=== PATIENT | female | born 1975 | race Two or more races ===

== ENCOUNTER 2017-08-27 15:16 | Emergency (ER) | payer SELFPAY ==
[~2017-08-27] VITALS: Ht 157.5 cm; Wt 68.0 kg
[~2017-08-27 15:16] MED LIST: COLACE100 MG ORAL; IBUPROFEN600 MG ORAL; NKM; NORCO 5-325 TA1 EACH ORAL; OFLOXACIN10 ML OP; TRAMADOL HCL50 MG ORAL
[2017-08-27 15:27] VITALS: BP 126/84
[2017-08-27] MEDS ORDERED: Mylanta II UD 30ml ORAL ONE ×2 (16:15→16:30)
[2017-08-27] MEDS ORDERED: Ketorolac 30mg Inj IV ONE (16:15)
--- NOTE | 2017-08-27 16:44 | Emergency Room Report ---
History of Present Illness General Chief Complaint: Abdominal Pain Source: Patient Present Illness HPI 41-year-old female presents to the emergency department complaining of 8/10 in severity midline epigastric pain-That is localized and waxes and wanes. x 8 days. denies Fevers, chills, vomiting, abdominal tenderness, constipation or diarrhea. Patient does report some nausea. She states pain is worse after eating. Denies , recent travel or ill contacts . Denies CP, Palpitations, LOC, AMS, dizziness, Changes in Vision, Sensation, paresthesias, or a sudden severe headache. Allergies: Coded Allergies: No Known Allergies (Unverified , 03/24/15) Patient History Past Medical History: see triage record Past Surgical History: none Pertinent Family History: none Now: No Reviewed Nursing Documentation: PMH: Agreed, PSxH: Agreed Nursing Documentation-PMH Past Medical History: No Stated History Review of Systems All Other Systems: negative except mentioned in HPI Physical Exam Vital Signs Date Time Temp Pulse Resp B/P (MAP) Pulse Ox O2 Delivery O2 Flow Rate FiO2 08/27/17 15:27 98.4 67 20 126/84 98 Room Air Sp02 EP Interpretation: reviewed, normal General Appearance: no apparent distress, alert, GCS 15, non-toxic Head: normocephalic, atraumatic Eyes: bilateral eye normal inspection, bilateral eye PERRL ENT: hearing grossly normal, normal voice Neck: full range of motion Respiratory: chest non-tender, lungs clear, normal breath sounds, speaking full sentences Cardiovascular #1: regular rate, rhythm, no edema Gastrointestinal: normal bowel sounds, non tender, soft, tenderness - mild epigastric tenderness Rectal: deferred Genitourinary: normal inspection Musculoskeletal: back normal, gait/station normal, normal range of motion, non- tender Neurologic: alert, oriented x3, responsive, motor strength/tone normal, sensory intact, speech normal, grossly normal Psychiatric: judgement/insight normal Skin: normal color, no rash, warm/dry, well hydrated Lymphatic: no adenopathy Medical Decision Making PA Attestation Dr. daigle is my supervising Physician whom patient management has been discussed with. Diagnostic Impression: Primary Impression: Abdominal pain Qualified Codes: R10.13 - Epigastric pain ER Course 41-year-old female presents to the emergency department complaining of 8/10 in severity midline epigastric pain-That is localized and waxes and wanes. x 8 days. denies Fevers, chills, vomiting, abdominal tenderness, constipation or diarrhea. Patient does report some nausea. She states pain is worse after eating. Denies , recent travel or ill contacts . Denies CP, Palpitations, LOC, AMS, dizziness, Changes in Vision, Sensation, paresthesias, or a sudden severe headache. Ddx considered but are not limited to Gastritis, GE, colitis, acute appy, SBO, * Vital signs: pt. is afebrile, H&PE are most consistent with Gastritis, no evidence to suggest acute abdomen on physical exam most consistent with gastritis. ORDERS: -None required at this time, the dx is clinical. ED INTERVENTIONS: -Mylanta -Lidocaine PO -Pepcid PO -I do not identify an emergent condition at this time. With current presentation , pt. is stable for close outpatient follow up and conservative treatment. D/ w pt. to return promptly to ED with worsening or new symptoms.- Pt. (and or responsible democrat) verbalizes' understanding and agreement with proposed treatment plan.proposed treatment plan. DISCHARGE: At this time pt. is stable for d/c to home. Will provide printed patient care instructions, and any necessary prescriptions. Care plan and follow up instructions have been discussed with the patient prior to discharge. Last Vital Signs Date Time Temp Pulse Resp B/P (MAP) Pulse Ox O2 Delivery O2 Flow Rate FiO2 08/27/17 15:27 98.4 67 20 126/84 98 Room Air Disposition: HOME, SELF-CARE Condition: Stable Scripts Mag Hydrox/Al Hydrox/Simeth (ALUM-MAG HYDROXIDE-SIMETH LIQ) 360 Ml Oral.susp 20 ML PO TID, #360 ML Prov: Jossy Driscoll P.A. 08/27/17 Ranitidine Hcl* (ZANTAC*) 150 Mg Tablet 150 MG ORAL TWICE A DAY, #20 TAB Prov: Jossy Driscoll.[place] 08/27/17 Patient Instructions: Abdominal Pain, Adult, Gastritis, Adult Additional Instructions: Take medications as directed. Follow up with a Primary Care Provider in 3-5 days, even if your symptoms have resolved. --Please review list of primary care clinics, if you do not already have a primary care provider Return sooner to ED if new symptoms occur, or current symptoms become worse. - Please note that this Emergency Department Report was dictated using [employer] machine operator technology software, occasionally this can lead to erroneous entry secondary to interpretation by the dictation equipment. Jossy Driscoll Aug 27, 2017 16:44
[2017-08-27] MEDS ORDERED: ZANTAC150 MG ORAL (16:45)
[2017-08-27] MEDS ORDERED: ALUM-MAG HYDRO360 ML PO (16:45)
[2017-08-27 16:59] VITALS: BP 126/84
== END 2017-08-27 17:01 | disposition home or self-care (01) ==
LOC: EMR 16:45
DX: R10.13 Epigastric pain (principal)
CPT/HCPCS: 99283; J1885

== ENCOUNTER 2020-08-26 18:19 | Emergency (ER) | payer OTHER, MEDICAID ==
[~2020-08-26] VITALS: Ht 170.2 cm; Wt 83.9 kg
[~2020-08-26 18:19] MED LIST changes: +ALUM-MAG HYDRO360 ML PO; +ZANTAC150 MG ORAL
[2020-08-26 18:29] VITALS: BP 140/74
--- NOTE | 2020-08-26 19:16 | Emergency Room Report ---
History of Present Illness General Chief Complaint: Pain Source: Patient Present Illness HPI Patient is a 44-year-old female who presents for increased headache, cough and intermittent breast pain. Onset of symptoms over the past few weeks. Denies any fever. Reports having some nonproductive cough. Had reported negative coronavirus testing in the past. Denies any history of diabetes. Reports having some suprapubic pain. Reports regular menses a few days ago. Allergies: Coded Allergies: No Known Allergies (Unverified , 03/24/15) COVID-19 Screening Contact w/high risk pt: No Experienced COVID-19 symptoms?: No COVID-19 Testing performed SOUR BLEACHING PLEATER: No Patient History Past Medical History: see triage record Reviewed Nursing Documentation: PMH: Agreed; PSxH: Agreed Nursing Documentation-PMH Past Medical History: No Stated History Review of Systems All Other Systems: negative except mentioned in HPI Physical Exam Vital Signs Date Time Temp Pulse Resp B/P (MAP) Pulse Ox O2 Delivery O2 Flow Rate FiO2 08/26/20 18:24 98.8 75 18 140/74 (96) 100 Room Air Sp02 EP Interpretation: reviewed, normal General Appearance: normal inspection, well appearing, no apparent distress, alert, GCS 15 Head: atraumatic ENT: normal ENT inspection, hearing grossly normal, normal voice Neck: normal inspection, full range of motion, supple, no bony tend Respiratory: normal inspection, lungs clear, normal breath sounds, no respiratory distress, no retraction, no wheezing Cardiovascular #1: regular rate, rhythm, no edema Gastrointestinal: normal inspection, normal bowel sounds, non tender, soft, no guarding, no hernia Genitourinary: no CVA tenderness Musculoskeletal: normal inspection, back normal, normal range of motion Neurologic: alert, motor strength/tone normal, auctioneer art III-XII nml as tested, oriented x3, responsive, speech normal, normal inspection Psychiatric: normal inspection, judgement/insight normal, mood/affect normal Medical Decision Making Diagnostic Impression: Primary Impression: Arthralgia ER Course Patient presented for generalized body aches. Differential diagnosis include was not limited to urinary tract infection, coronavirus infection, pneumonia among others. Because of complexity of patient's case laboratory tests and imaging studies were ordered. Patient appears to have some residual symptoms left from previous coronavirus infection. She does not appear to have any evidence of respiratory distress at this time. Patient was given prescription for medications for symptomatic management. She advised to return if worse. This medical record is generated with [employer] architectural draftsman software. There may be some architectural draftsman discrepancies related to use of this software Labs Test 08/26/20 18:55 White Blood Count 9.6 K/UL (4.8-10.8) Red Blood Count 3.83 M/UL (4.20-5.40) Hemoglobin 12.2 G/DL (12.0-16.0) Hematocrit 36.4 % (37.0-47.0) Mean Corpuscular Volume 95 FL (80-99) Mean Corpuscular Hemoglobin 31.7 PG (27.0-31.0) Mean Corpuscular Hemoglobin Concent 33.4 G/DL (32.0-36.0) Red Cell Distribution Width 13.2 % (11.6-14.8) Platelet Count 276 K/UL (150-450) Mean Platelet Volume 7.0 FL (6.5-10.1) Neutrophils (%) (Auto) 53.8 % (45.0-75.0) Lymphocytes (%) (Auto) 33.5 % (20.0-45.0) Monocytes (%) (Auto) 8.4 % (1.0-10.0) Eosinophils (%) (Auto) 2.3 % (0.0-3.0) Basophils (%) (Auto) 2.1 % (0.0-2.0) Urine Color Pale yellow Urine Appearance Slightly cloudy Urine pH 7 (4.5-8.0) Urine Specific [place] 1.005 (1.005-1.035) Urine Protein Negative (NEGATIVE) Urine Glucose (UA) Negative (NEGATIVE) Urine Ketones Negative (NEGATIVE) Urine Blood 5+ (NEGATIVE) Urine Nitrite Negative (NEGATIVE) Urine Bilirubin Negative (NEGATIVE) Urine Urobilinogen Normal MG/DL (0.0-1.0) Urine Leukocyte Esterase 1+ (NEGATIVE) Urine RBC Tntc /HPF (0 - 2) Urine WBC 0-2 /HPF (0 - 2) Urine Squamous Epithelial Cells Few /LPF (NONE/OCC) Urine Bacteria Occasional /HPF (NONE) Urine HCG, Qualitative Negative (NEGATIVE) Last Vital Signs Date Time Temp Pulse Resp B/P (MAP) Pulse Ox O2 Delivery O2 Flow Rate FiO2 08/26/20 18:29 98.8 75 18 140/74 100 Room Air Status: improved Disposition: HOME, SELF-CARE Condition: Stable Scripts Cephalexin* (KEFLEX*) 500 Mg Capsule 500 MG ORAL EVERY 6 HOURS, #28 CAP Prov: Surendra Barbour MD 08/26/20 Guaifenesin/Dextromethorphan* (Guaifenesin Dm Syrup*) 5 Ml Syrup 5 ML ORAL Q8H PRN for FOR COUGH, #118 ML 0 Refills Prov: Surendra Barbour MD 08/26/20 Hydrocortisone Ac/Lidocaine (LIDOCAINE-HC 3-0.5% CREAM KIT) 1 Each Kit 1 EACH RC DAILY, #1 KIT Prov: Surendra Barbour MD 08/26/20 Docusate Sodium* (COLACE*) 100 Mg Capsule 100 MG ORAL TWICE A DAY, #30 CAP Prov: Surendra Barbour MD 08/26/20 Referrals: NOT CHOSEN IPA/,REFERRING (PCP) Surendra Barbour MD Aug 26, 2020 19:16
[2020-08-26 19:21] LABS: BASOPHILS % (AUTO) 2.1 % (0.0-2.0); EOSINOPHILS % (AUTO) 2.3 % (0.0-3.0); HEMATOCRIT 36.4 % (37.0-47.0); HEMOGLOBIN 12.2 G/DL (12.0-16.0); LYMPHOCYTES % (AUTO) 33.5 % (20.0-45.0); MEAN CORPUSCULAR VOLUME 95 FL (80-99); MONOCYTES % (AUTO) 8.4 % (1.0-10.0); NEUTROPHILS % (AUTO) 53.8 % (45.0-75.0); PLATELET COUNT 276 K/UL (150-450); RED BLOOD COUNT 3.83 M/UL (4.20-5.40); RED CELL DISTRIBUTION WIDTH 13.2 % (11.6-14.8); WHITE BLOOD COUNT 9.6 K/UL (4.8-10.8)
[2020-08-26 19:25] LABS: APPEARANCE,URINE SLIGHTLY CLOUDY; BILIRUBIN, URINE NEGATIVE (NEGATIVE); COLOR,URINE PALE YELLOW; GLUCOSE, URINE (UA) NEGATIVE (NEGATIVE); KETONES,URINE NEGATIVE (NEGATIVE); LEUKOCYTE ESTERASE ,URINE 1+ (NEGATIVE); NITRITE,URINE NEGATIVE (NEGATIVE); PH,URINE 7 (4.5-8.0); PROTEIN,URINE NEGATIVE (NEGATIVE); UROBILINOGEN,URINE NORMAL MG/DL (0.0-1.0)
[2020-08-26 19:32] LABS: ANION GAP 6 mmol/L (5-15); BLOOD UREA NITROGEN 12 mg/dL (7-18); CARBON DIOXIDE 31 MMOL/L (21-32); CHLORIDE 106 MMOL/L (98-107); CREATININE 0.7 MG/DL (0.55-1.30); POTASSIUM 3.7 MMOL/L (3.5-5.1); SODIUM 142 MMOL/L (136-145)
[2020-08-26 19:46] LABS: ALANINE AMINOTRANSFERASE 20 U/L (12-78); ALBUMIN 3.7 G/DL (3.4-5.0); ALKALINE PHOSPHATASE 99 U/L (46-116); ASPARTATE AMINO TRANSFERASE 21 U/L (15-37); BILIRUBIN,TOTAL 0.2 MG/DL (0.2-1.0)
--- NOTE | 2020-08-26 20:33 | Diagnostic Imaging Report ---
EXAM: XR Chest, 1 View CLINICAL HISTORY: SOB TECHNIQUE: Frontal view of the chest. COMPARISON: No relevant prior studies available. FINDINGS: Lungs: No consolidation. Pleural space: No pleural effusion. No pneumothorax. Heart: Unremarkable. No cardiomegaly. Bones/joints: Unremarkable. IMPRESSION: No acute cardiopulmonary abnormality.
[2020-08-26] MEDS ORDERED: LIDOCAINE HC RC (20:35)
[2020-08-26] MEDS ORDERED: GUAIFENESIN DM118 M1 ORAL (20:35)
[2020-08-26] MEDS ORDERED: COLACE100 MG ORAL (20:35)
[2020-08-26] MEDS ORDERED: CEPHALEXIN500 MG ORAL (20:50)
[2020-08-26 21:00] VITALS: BP 140/74
[2020-08-26] MEDS ORDERED: Ketorolac 30mg Inj IV ONE (21:00)
== END 2020-08-26 21:00 | disposition home or self-care (01) ==
LOC: EMR 18:50
DX: M25.50 Pain in unspecified joint (principal)
CPT/HCPCS: 36415; 71045; 80053; 81001; 81025; 84443; 84484; 85025; 85379; 85610; 85730; 86140; 96361; 96374; 99284; J1885; J7030